=== PATIENT | female | born 1960 | race African-American/Black ===

== ENCOUNTER 2018-11-19 11:42 | Day surgery (SDC) | payer OTHER | END 2018-11-19 16:15 | disposition home or self-care (01) | LOC: JASU-SURG 11:42 ==

== ENCOUNTER 2019-08-06 22:53 | Emergency (ER) | payer OTHER ==
[2019-08-06 23:06] VITALS: TEMP 97.8; BMI 28.8
--- NOTE | 2019-08-07 01:41 | PDOC ---
History of Present Illness - General Chief Complaint: Pain, Acute Stated Complaint: NECK PAIN Time Seen by Provider: 08/07/19 01:39 History Source: Patient Exam Limitations: No Limitations - History of Present Illness Initial Comments: 08/07/19 01:41 PCP: Dr. Bonilla Neuro: Dr. Sinha HPI: 58yo F pmh HTN, resting tremor, two silent strokes found on MRI recently presenting with left sided posterior head / neck pain. Patient reports having a stiff neck while at a buddhist class around 6PM. Progressed to pain that shoots up the back side of her head. She took a second ASA 81mg due to the pain and concern she was having another stroke - did not fix the pain. She denies and numbness, tingling, weakness, gait instability, speech changes, memory problems. No history of blood clots or cardiac arrhythmia. Pain is positional, worse with turning her head, absent during my evaluation while she remained in a sitting position. On propranolol for a resting tremor she has had for the past 2 years. All: Contrast media Meds: HCTZ, Valsartan, Propranolol PMH: As above SHx: Denies toxic habits Past History - Past Medical History Allergies/Adverse Reactions: Allergies Allergy/AdvReac Type Severity Reaction Status Date / Time Iodinated Contrast Media Allergy Verified 11/19/18 13:19 SEASONAL Allergy Uncoded 11/18/18 11:19 Home Medications: Ambulatory Orders Hydrocodone/Acetaminophen [Hydrocodone-Acetamin 5-325 mg] 1 - 2 tab PO TID PRN # 15 tablet MDD 6 11/19/18 Loratadine [Allergy Relief] 10 mg PO DAILY 11/19/18 Valsartan/Hydrochlorothiazide [Valsartan-Hctz 320-25 mg Tab] 1 each PO DAILY 10/04 Anemia: No Asthma: No Cancer: No Cardiac Disorders: No CVA: No COPD: No CHF: No Dementia: No Diabetes: No GI Disorders: No Disorders: No HTN: Yes Hypercholesterolemia: No Liver Disease: No Seizures: No Thyroid Disease: No Other medical history: TIA - Psycho Social/Smoking Cessation Hx Smoking History: Never smoked Hx Alcohol Use: No Drug/Substance Use Hx: No Substance Use Type: None Review of Systems - Review of Systems Able to Perform ROS?: Yes Is the patient limited Georgian proficient: Yes Constitutional: No: Chills, Fever HEENTM: No: Nose Congestion, Throat Pain Respiratory: No: Cough, Shortness of Breath Cardiac (ROS): No: Chest Pain, Edema, Irregular Heart Rate ABD/GI: No: Constipated, Diarrhea, Nausea, Vomiting : No: Burning, Dysuria, Frequency Musculoskeletal: Yes: See HPI, Neck Pain. No: Back Pain, Muscle Pain, Muscle Weakness Integumentary: No: Bruising, Pruritus, Rash Neurological: Yes: See HPI. No: Headache, Numbness, Tingling, Weakness Psychiatric: No: Stressors, Change in Appetite Endocrine: No: Increased Thirst, Increased Urine Hematologic/Lymphatic: No: Anemia, Blood Clots, Easy Bleeding All Other Systems: Reviewed and Negative *Physical Exam - Vital Signs Last Vital Signs Temp Pulse Resp BP Pulse Ox 97.8 F 80 20 134/81 100 08/06/19 23:03 08/06/19 23:03 08/06/19 23:03 08/06/19 23:03 08/06/19 23:03 - Physical Exam 08/07/19 02:13 Vitals reviewed, AFVSS GEN: Well appearing, appears stated age, NAD, comfortable. AAOx3. HEENT: NCAT, EOMI, PERRL. Sclera anicteric, non-injected. No facial asymmetry. Moist mucous membranes. Normal voice. Trachea midline. Neck tender / tight L paraspinal, reproduces pain. CV: RRR, S1/S2, no murmurs / rubs / gallops appreciated. LUNG: CTAB, normal work of breathing. No wheezes, rales, rhonchi. No cough. Speaking full sentences. GI: Soft, NTND, +BS, no guarding, no rebound. No masses. Neg CVAT b/l. EXTREMITIES: 2+ distal pulses. No LE edema. No obvious deformities of all extremities. SKIN: Warm, dry, no rashes appreciated, non-jaundiced. PSYCH: Normal mood and affect. Cooperative and appropriate. NEURO: CN 2-12 intact. Moving all extremities well with normal gait. Normal strength and sensation throughout. Normal speech, articulation, memory remote and current. Normal fund of knowledge, A&Ox3. Medical Decision Making - Medical Decision Making 08/07/19 02:28 58yo F pmh HTN, resting tremor, two silent strokes found on MRI recently presenting with left sided posterior head / neck pain. Normal vitals and neurologic exam. Most consistent with cervical nerve compression, reassuring given no trauma, non-tender. - NCHCT, C-Spine CT - Refuses pain medication at this time 08/07/19 04:31 - Patient pending imaging results 08/07/19 05:00 - Imaging negative, patient ready for discharge Discharge - Discharge Information Problems reviewed: Yes Clinical Impression/Diagnosis: Neck pain Condition: Improved Disposition: HOME - Admission No - Follow up/Referral Referrals: Isidro Bonilla MD [Primary Care Provider] - - Patient Discharge Instructions Additional Instructions: Follow up with your primary care physician Dr. Bonilla. Come back to the emergency department for any new, worsening or concerning symptoms. - Post Discharge Activity
--- NOTE | 2019-08-07 01:58 | PDOC ---
Attending Attestation - Resident Resident Name: Kj Fernandez - ED Attending Attestation I have performed the following: I have examined & evaluated the patient, The case was reviewed & discussed with the resident, I agree w/resident's findings & plan - HPI HPI: 08/07/19 04:48 see resident hpi - Physicial Exam PE: 08/07/19 04:48 see resident exam - Medical Decision Making 08/07/19 04:49 58-year-old female with left-sided reproducible neck pain with some radiation into the occiput now improved Patient states she did walk up a long hill carrying a backpack and feels this may be related Patient repeatedly refused pain medication in the emergency department CT scan of the head and cervical spine show no significant acute abnormality She has neuro intact, headache free with reproducible left-sided neck pain on palpation of ropey paravertebral musculature Will DC to follow-up with primary care
--- NOTE | 2019-08-07 04:59 | PDOC ---
*Physical Exam - Vital Signs Last Vital Signs Temp Pulse Resp BP Pulse Ox 97.8 F 80 20 134/81 100 08/06/19 23:03 08/06/19 23:03 08/06/19 23:03 08/06/19 23:03 08/06/19 23:03 Discharge - Discharge Information Problems reviewed: Yes Clinical Impression/Diagnosis: Neck pain Condition: Improved Disposition: HOME - Admission No - Follow up/Referral Referrals: Isidro Bonilla MD [Primary Care Provider] - - Patient Discharge Instructions Patient Printed Discharge Instructions: DI for Occipital Neuralgia Additional Instructions: Follow up with your primary care physician Dr. Bonilla. Come back to the emergency department for any new, worsening or concerning symptoms. - Post Discharge Activity
[2019-08-07 05:23] VITALS: BP 119/80; PULSE 84
== END 2019-08-07 05:00 | disposition home or self-care (01) ==
LOC: JER 22:53
DX: M54.2 Cervicalgia (principal); M54.81 Occipital neuralgia; I10 Essential (primary) hypertension; Z86.73 Personal history of transient ischemic attack (TIA), and cerebral infarction without residual deficits
CPT/HCPCS: 70450-TC; 72125-TC; 99284-25

== ENCOUNTER 2020-02-24 18:15 | Emergency (ER) | payer OTHER ==
[2020-02-24 18:48] VITALS: BP 172/94; PULSE 76; TEMP 98.3; BMI 28.3
--- NOTE | 2020-02-24 18:49 | PDOC ---
Rapid Medical Evaluation Chief Complaint: Constipation Time Seen by Provider: 02/24/20 18:45 Medical Evaluation: Allergies Allergy/AdvReac Type Severity Reaction Status Date / Time Iodinated Contrast Media Allergy Verified 02/24/20 18:45 SEASONAL Allergy Uncoded 02/24/20 18:45 02/24/20 18:45 I have performed a brief in-person evaluation of this patient. The patient presents with a chief complaint of: constipation x 2 months which has been getting work in the last week. report hasn't have BM in a week until today when she had little BM. report feeling of bloating and decreased appetite. Denies fever, chills. report no abd pain now. report taking OTC meds for constipation w/o improvement Pertinent physical exam findings: A&Ox 3 in NAD I have ordered the following: CBC, CMP, ABD x-ray The patient will proceed to the ED for further evaluation. Discharge Disposition - Diagnosis Constipation Qualifiers: Constipation type: unspecified constipation type Qualified Code(s): K59.00 - Constipation, unspecified - Discharge Dispostion Condition at time of disposition: Stable - Referrals Referrals: Isidro Bonilla MD [Primary Care Provider] - - Patient Instructions - Post Discharge Activity
--- NOTE | 2020-02-24 21:15 | PDOC ---
History of Present Illness - General Chief Complaint: Constipation Stated Complaint: CONSTIPATION/LOSS OF APPETITE Time Seen by Provider: 02/24/20 18:45 History Source: Patient - History of Present Illness Initial Comments: 02/24/20 23:55 59-year-old female complaining of bloating, constipation for the last 3 weeks. Patient reports that she has been having thin pencillike stool for the last 1 week. Patient was seen by PCP and was advised that she needs a colonoscopy. Patient reports that she was unable to get a prompt GI appointment. Denies fever/chills, nausea, vomiting. Patient reports that she is a prediabetic, hypertension/hypercholesterolemia 02/24/20 23:56 Past History - Medical History Allergies/Adverse Reactions: Allergies Allergy/AdvReac Type Severity Reaction Status Date / Time Iodinated Contrast Media Allergy Verified 02/24/20 18:45 SEASONAL Allergy Uncoded 02/24/20 18:45 Home Medications: Ambulatory Orders Hydrocodone/Acetaminophen [Hydrocodone-Acetamin 5-325 mg] 1 - 2 tab PO TID PRN #15 tablet MDD 6 11/19/18 Loratadine [Allergy Relief] 10 mg PO DAILY 11/19/18 Valsartan/Hydrochlorothiazide [Valsartan-Hctz 320-25 mg Tab] 1 each PO DAILY 11/19/18 Magnesium Citrate [Citroma -] 195 ml PO ONCE #1 bottle 02/25/20 Polyethylene Glycol 3350 [Miralax (For Daily Use) -] 17 gm PO BID #1 bottle 02/25/20 Anemia: No Asthma: No Cancer: No Cardiac Disorders: No CVA: No COPD: No CHF: No Dementia: No Diabetes: No GI Disorders: No Disorders: No HTN: Yes Hypercholesterolemia: Yes Liver Disease: No Seizures: No Thyroid Disease: No Other medical history: TREMORS - Immunization History Immunization Up to Date: Yes - Psycho-Social/Smoking History Smoking History: Never smoked - Substance Abuse Hx (Audit-C & DAST Scrn) How often the patient has a drink containing alcohol: Never Score: In Men: 4 or > Positive; In Women: 3 or > Positive: 0 Screen Result (Pos requires Nsg. Audit-10AR): Negative In the last yr the pt used illegal drug/Rx for NonMed reason: No Score: Yes response is considered Positive: 0 Screen Result (Positive result requires Nsg. DAST-10): Negative Review of Systems - Review of Systems Able to Perform ROS?: Yes Is the patient limited Macedonian proficient: No Constitutional: No: Symptoms Reported, See HPI, Chills, Diaphoresis, Fever, Loss of Appetite, Malaise, Night Sweats, Weakness, Weight Stable, Unintentional Wgt. Loss, Unexplained wgt Loss, Other ABD/GI: Yes: Constipated, Abdominal cramping, Other (bloated) *Physical Exam - Vital Signs Last Vital Signs Temp Pulse Resp BP Pulse Ox 98.3 F 76 20 172/94 H 100 02/24/20 18:45 02/24/20 18:45 02/24/20 18:45 02/24/20 18:45 02/24/20 18:45 - Physical Exam General Appearance: Yes: Appropriately Dressed Respiratory/Chest: positive: Lungs Clear, Normal Breath Sounds Cardiovascular: positive: Regular Rhythm, Regular Rate Gastrointestinal/Abdominal: positive: Normal Bowel Sounds, Soft, Distended Extremity: positive: Normal Capillary Refill, Normal Inspection, Normal Range of Motion Integumentary: positive: Normal Color, Dry, Warm Neurologic: positive: Fully Oriented, Alert, Normal Mood/Affect ED Treatment Course - LABORATORY CBC & Chemistry Diagram: 02/24/20 21:48 02/24/20 21:48 ED Progress Note - Progress Note Progress Note: 02/25/20 05:55 A: abdominal pain COnstipation P: labs CTAP meds Medical Decision Making - Medical Decision Making 02/25/20 01:08 CTAP: Lung bases are clear of any right lower lobe calcified granuloma. The visualized cardiac chambers are normal size and configuration. Normal liver, gallbladder, pancreas, spleen, adrenal glands and kidneys. The stomach and abdominal small and large bowel are normal. Moderate amount of diffuse solid stool is noted. There is no aortic aneurysm. There is no significant retroperitoneal lymphadenopathy. The pelvic small and large bowel are normal. The appendix is normal. The uterus and adnexal structures are normal. Urinary bladder is unremarkable. There is no pelvic free fluid. No discrete pelvic lymphadenopathy is identified. Discharge - Discharge Information Problems reviewed: Yes Clinical Impression/Diagnosis: Abdominal bloating Constipation Qualifiers: Constipation type: unspecified constipation type Qualified Code(s): K59.00 - Constipation, unspecified Condition: Stable Disposition: HOME - Additional Discharge Information Prescriptions: Magnesium Citrate [Citroma -] 195 ml PO ONCE #1 bottle Polyethylene Glycol 3350 [Miralax (For Daily Use) -] 17 gm PO BID #1 bottle - Follow up/Referral Referrals: Isidro Bonilla MD [Primary Care Provider] - - Patient Discharge Instructions Patient Printed Discharge Instructions: Constipation Additional Instructions: Drink plenty of fluids. Take MiraLAX as prescribed Take magnesium citrate drink the whole bottle. Follow-up with a director corporate as soon as possible. Return to the emergency room for any worsening symptoms - Post Discharge Activity Work/Back to School Note: Back to Work
[2020-02-24 22:14] LABS: BASO % 0.3 % (0-2.0); EOS % 1.4 % (0-4.5); HEMATOCRIT 33.8 % (32.4-45.2); HEMOGLOBIN 11.6 GM/dL (10.7-15.3); LYMPH % 37.3 % (8-40); MCH 29.1 pg (25.7-33.7); MCHC 34.3 g/dl (32.0-36.0); MEAN CELL VOLUME 85.1 fl (80-96); MONO % 7.7 % (3.8-10.2); NEUT % 53.3 % (42.8-82.8); PLATELET COUNT 370 K/MM3 (134-434); RBC 3.97 M/mm3 (3.60-5.2); RDW 13.5 % (11.6-15.6); WHITE BLOOD COUNT 9.2 K/mm3 (4.0-10.0)
[2020-02-24 22:46] LABS: ALBUMIN 3.6 g/dl (3.4-5.0); BILIRUBIN,TOTAL 0.4 mg/dL (0.2-1); BLOOD UREA NITROGEN 13.2 mg/dL (7-18); CALCIUM 9.5 mg/dL (8.5-10.1); POTASSIUM 4.1 mmol/L (3.5-5.1)
[2020-02-25 00:04] LABS: EPI CELLS 13 /uL (0-25.1); HYALINE CASTS 1 /uL (0-3.1); PH,URINE 6.5 (5.0-8.0); URINE APPEARANCE CLEAR; URINE BACTERIA 64 /uL (0-1359); URINE BILIRUBIN NEGATIVE (NEGATIVE); URINE COLOR YELLOW; URINE GLUCOSE (UA) NEGATIVE (NEGATIVE); URINE KETONE NEGATIVE (NEGATIVE); URINE LEUK ESTERASE TRACE (NEGATIVE); URINE NITRITE NEGATIVE (NEGATIVE); URINE PROTEIN 2+ (NEGATIVE); URINE UROBILINOGEN 0.2 mg/dL (0.2-1.0); URINE WBC 35 /uL (0-25.8)
== END 2020-02-25 01:23 | disposition home or self-care (01) ==
LOC: JER 18:15
DX: K59.00 Constipation, unspecified (principal)
CPT/HCPCS: 36415; 74176-TC; 80053; 81003; 84443; 85025; 99285-25

== ENCOUNTER 2022-08-04 16:59 | Emergency (ER) | payer OTHER ==
[2022-08-04 17:06] VITALS: BMI 28.0
[2022-08-04] MEDS ORDERED: SIMETHICONE 80 MG TAB.CHEW (FP) PO ONE (18:20)
[2022-08-04] MEDS ORDERED: amLODIPine BESYLATE 10 MG TABLET (FP) PO ONE (18:24)
[2022-08-04 18:29] VITALS: RESP 16; TEMP 98.2
[2022-08-04] MEDS ORDERED: SIMETHICONE 80 MG TAB.CHEW (FP) ONE (18:35)
[2022-08-04] MEDS ORDERED: amLODIPine BESYLATE 10 MG TABLET (FP) ONE (18:35)
[2022-08-04 18:59] VITALS: BP 164/101; PULSE 88
[2022-08-04 19:49] LABS: BASO % 1.1 % (0-2.0); EOS % 0.9 % (0-4.5); HEMATOCRIT 34.6 % (32.4-45.2); HEMOGLOBIN 11.9 GM/dL (10.7-15.3); LYMPH % 43.6 % (8-40); MCH 29.2 pg (25.7-33.7); MCHC 34.3 g/dl (32.0-36.0); MEAN CELL VOLUME 84.9 fl (80-96); MEAN PLT VOLUME 7.2 fl (7.5-11.1); MONO % 10.5 % (3.8-10.2); NEUT % 43.9 % (42.8-82.8); PLATELET COUNT 372 10^3/uL (134-434); RBC 4.08 M/mm3 (3.60-5.2); RDW 14.1 % (11.6-15.6); WHITE BLOOD COUNT 7.6 K/mm3 (4.0-10.0)
[2022-08-04 20:11] LABS: CALCIUM 9.7 mg/dL (8.5-10.1)
[2022-08-04 20:13] LABS: ALBUMIN 4.1 g/dl (3.4-5.0); BLOOD UREA NITROGEN 19.7 mg/dL (7-18)
[2022-08-04 20:15] LABS: CREATININE 1.2 mg/dL (0.55-1.3)
[2022-08-04 20:16] LABS: TOT PROT 8.2 g/dl (6.4-8.2)
[2022-08-04 20:17] LABS: BILIRUBIN,TOTAL 0.4 mg/dL (0.2-1)
[2022-08-04] MEDS ORDERED: MAGNESIUM CITRATE 300 ML BOTTLE PO ONE (20:26)
[2022-08-04] MEDS ORDERED: MAGNESIUM HYDROX 2400MG/30ML ORAL SUSPENSION 30 ML CUP PO ONE (20:35)
[2022-08-04] MEDS ORDERED: MAGNESIUM HYDROX 2400MG/30ML ORAL SUSPENSION 30 ML CUP ONE (20:35)
== END 2022-08-04 21:29 | disposition home or self-care (01) ==
LOC: JER 16:59
DX: K59.00 Constipation, unspecified (principal); R14.0 Abdominal distension (gaseous)
CPT/HCPCS: 0241U-QW; 36415; 80053; 83690; 85025; 99283-25

== ENCOUNTER 2022-08-28 20:59 | Emergency (ER) | payer OTHER ==
[2022-08-28 21:10] VITALS: BP 168/98; PULSE 90; RESP 20; TEMP 97.8; BMI 26.9
[2022-08-28] MEDS ORDERED: ACETAMINOPHEN 500 MG TABLET (FP) PO ONE (22:25)
[2022-08-28] MEDS ORDERED: ACETAMINOPHEN 325 MG TABLET (FP) ONE (22:41)
[2022-08-29] MEDS ORDERED: diazePAM 5 MG TABLET PO ONE (00:41)
[2022-08-29] MEDS ORDERED: diazePAM 5 MG TABLET ONE (01:01)
== END 2022-08-29 01:53 | disposition home or self-care (01) ==
LOC: JER 20:59
DX: M62.838 Other muscle spasm (principal); G20 Parkinson's disease; R51.9 Headache, unspecified
CPT/HCPCS: 70450-TC; 99284-25

== ENCOUNTER 2022-08-29 05:03 | Day surgery (SDC) | payer OTHER ==
[2022-08-28 10:55] VITALS: BMI 27.1
[2022-08-29 09:35] VITALS: TEMP 97.8
[2022-08-29 11:16] VITALS: PULSE 74; RESP 14
[2022-08-29 14:43] VITALS: BP 140/88
== END 2022-08-29 11:40 | disposition home or self-care (01) ==
LOC: JASU-ENDO 05:03
PROVIDERS: ATTEND Student in an Organized Health Care Education/Training Program
PROC: 0DB78ZX Excision of Stomach, Pylorus, Via Natural or Artificial Opening Endoscopic, Diagnostic (ICD-10-PCS; 2022-08-29)
PROC: 0DB68ZX Excision of Stomach, Via Natural or Artificial Opening Endoscopic, Diagnostic (ICD-10-PCS; 2022-08-29)
PROC: 0DB48ZX Excision of Esophagogastric Junction, Via Natural or Artificial Opening Endoscopic, Diagnostic (ICD-10-PCS; 2022-08-29)
PROC: 0DB98ZX Excision of Duodenum, Via Natural or Artificial Opening Endoscopic, Diagnostic (ICD-10-PCS; principal; 2022-08-29 16:30)
DX: K29.50 Unspecified chronic gastritis without bleeding (principal)
CPT/HCPCS: 88305-TC; 88342-TC

== ENCOUNTER 2023-04-23 16:34 | Emergency (ER) | payer OTHER ==
[2023-04-23 17:28] VITALS: TEMP 98.1; BMI 28.3
[2023-04-23 20:17] VITALS: PULSE 79; RESP 18
[2023-04-23 21:55] LABS: BASO % 0.8 % (0-2.0); EOS % 1.6 % (0-4.5); HEMATOCRIT 35.6 % (32.4-45.2); HEMOGLOBIN 11.6 GM/dL (10.7-15.3); LYMPH % 46.5 % (8-40); MCH 28.1 pg (25.7-33.7); MCHC 32.5 g/dl (32.0-36.0); MEAN CELL VOLUME 86.5 fl (80-96); MEAN PLT VOLUME 6.5 fl (7.5-11.1); MONO % 9.6 % (3.8-10.2); NEUT % 41.5 % (42.8-82.8); PLATELET COUNT 305 10^3/uL (134-434); RBC 4.11 M/mm3 (3.60-5.2); RDW 14.1 % (11.6-15.6); WHITE BLOOD COUNT 7.6 K/mm3 (4.0-10.0)
[2023-04-23 22:19] LABS: POTASSIUM 3.7 mmol/L (3.5-5.1)
[2023-04-23 22:21] LABS: ALBUMIN 3.6 g/dl (3.4-5.0); CALCIUM 9.2 mg/dL (8.5-10.1)
[2023-04-23 22:22] LABS: BLOOD UREA NITROGEN 13.8 mg/dL (7-18)
[2023-04-23 22:23] VITALS: BP 145/73
[2023-04-23 22:26] LABS: BILIRUBIN,TOTAL 0.6 mg/dL (0.2-1); TOT PROT 7.2 g/dl (6.4-8.2)
[2023-04-23] MEDS ORDERED: ACETAMINOPHEN 325 MG TABLET (FP) PO ONE (22:28)
== END 2023-04-23 23:38 | disposition home or self-care (01) ==
LOC: JER 16:34
DX: I10 Essential (primary) hypertension (principal); R51.9 Headache, unspecified
CPT/HCPCS: 36415; 71045-TC-FY; 80053; 84484; 85025; 93005; 93010; 99285-25

== ENCOUNTER 2024-06-06 20:04 | Inpatient (IN) | payer OTHER ==
[2024-06-06 20:10] VITALS: BMI 28.3
[2024-06-06 22:36] LABS: BASO % 0.4 % (0-2.0); EOS % 2.2 % (0-4.5); HEMATOCRIT 35.9 % (32.4-45.2); HEMOGLOBIN 12.5 GM/dL (10.7-15.3); LYMPH % 42.3 % (8-40); MCH 30.4 pg (25.7-33.7); MCHC 34.9 g/dl (32.0-36.0); MEAN CELL VOLUME 87.1 fl (80-96); MEAN PLT VOLUME 6.7 fl (7.5-11.1); MONO % 9.9 % (3.8-10.2); NEUT % 45.2 % (42.8-82.8); PLATELET COUNT 294 10^3/uL (134-434); RBC 4.12 M/mm3 (3.60-5.2); RDW 13.6 % (11.6-15.6); WHITE BLOOD COUNT 6.3 K/mm3 (4.0-10.0)
[2024-06-06 22:55] LABS: POTASSIUM 3.6 mmol/L (3.5-5.1)
[2024-06-06 22:57] LABS: ALBUMIN 3.8 g/dl (3.4-5.0); BLOOD UREA NITROGEN 14.4 mg/dL (7-18); CALCIUM 9.2 mg/dL (8.5-10.1)
[2024-06-06 23:02] LABS: BILIRUBIN,TOTAL 0.5 mg/dL (0.2-1); TOT PROT 7.4 g/dl (6.4-8.2)
[2024-06-07] MEDS ORDERED: METOCLOPRAMIDE HCL INJECTION 10 MG/2 ML VIAL ONE (01:13)
[2024-06-07] MEDS ORDERED: ACETAMINOPHEN INJECTION 100 ML ONE (01:13)
[2024-06-07] MEDS: METOCLOPRAMIDE HCL INJECTION 10 MG/2 ML VIAL IVPB ONE (01:18)
[2024-06-07] MEDS: ACETAMINOPHEN 1000 MG/100 ML BAG IVPB ONE (01:18)
[2024-06-07] MEDS: SODIUM CHLORIDE 0.9% 500 ML INFUS.BAG IV ONE (01:18)
[2024-06-07] MEDS ORDERED: VALSARTAN 80 MG TABLET ONE ×2 (02:26→06:11)
[2024-06-07] MEDS: VALSARTAN 80 MG TABLET PO ONE (02:44)
[2024-06-07] MEDS: VALSARTAN 160 MG TABLET PO SCH (06:26)
[2024-06-07 06:41] LABS: BASO % 0.4 % (0-2.0); EOS % 1.6 % (0-4.5); HEMOGLOBIN 11.8 GM/dL (10.7-15.3); LYMPH % 41.6 % (8-40); MCH 30.1 pg (25.7-33.7); MCHC 34.8 g/dl (32.0-36.0); MEAN CELL VOLUME 86.6 fl (80-96); MEAN PLT VOLUME 7.2 fl (7.5-11.1); NEUT % 45.4 % (42.8-82.8); PLATELET COUNT 304 10^3/uL (134-434); RBC 3.93 M/mm3 (3.60-5.2); RDW 13.6 % (11.6-15.6); WHITE BLOOD COUNT 5.8 K/mm3 (4.0-10.0)
[2024-06-07 06:50] LABS: POTASSIUM 3.6 mmol/L (3.5-5.1)
[2024-06-07 06:52] LABS: CALCIUM 9.2 mg/dL (8.5-10.1)
[2024-06-07 06:54] LABS: ALBUMIN 3.6 g/dl (3.4-5.0); BLOOD UREA NITROGEN 12.2 mg/dL (7-18); MAGNESIUM 1.6 mg/dL (1.8-2.4)
[2024-06-07 06:57] LABS: PHOSPHOROUS 3.3 mg/dL (2.5-4.9)
[2024-06-07 06:58] LABS: BILIRUBIN,TOTAL 0.5 mg/dL (0.2-1)
[2024-06-07 06:59] LABS: TOT PROT 7.2 g/dl (6.4-8.2)
[2024-06-07] MEDS ORDERED: CARBIDOPA/LEVODOPA 25/100 TABLET (FP) ONE ×2 (07:47→19:36)
[2024-06-07] MEDS: CARBIDOPA/LEVODOPA 25/100 TABLET (FP) PO SCH (07:52)
[2024-06-07] MEDS: INSULIN ASPART SLIDING SCALE (NOVOLOG) 1 VIAL SQ SCH (07:53)
[2024-06-07] MEDS: HYDROCHLOROTHIAZIDE 12.5 MG CAPSULE (FP) PO SCH (10:25)
[2024-06-07] MEDS: ENOXAPARIN NA (PORCINE) 40 MG/0.4 ML DISP.SYRIN SQ SCH (10:25)
[2024-06-07] MEDS: ASPIRIN 81 MG CHEWABLE TABLETS PO SCH (10:25)
[2024-06-07] MEDS: amLODIPine BESYLATE 5 MG TABLET (FP) PO SCH (10:25)
[2024-06-07] MEDS ORDERED: INSULIN ASPART SLIDING SCALE (NOVOLOG) 1 VIAL SQ ONE (12:18)
[2024-06-07] MEDS ORDERED: amLODIPine BESYLATE 5 MG TABLET (FP) ONE (17:20)
[2024-06-07] MEDS: amLODIPine BESYLATE 5 MG TABLET (FP) PO ONE (17:22)
[2024-06-07] MEDS ORDERED: hydrALAZINE HCL 20 MG/ML VIAL ONE (18:34)
[2024-06-07] MEDS: hydrALAZINE HCL 20 MG/ML VIAL IVPUSH PRN (19:00)
[2024-06-07] MEDS ORDERED: ATORVASTATIN CA 40 MG TABLET (FP) ONE (22:04)
[2024-06-07] MEDS: ATORVASTATIN CA 40 MG TABLET (FP) PO SCH (22:06)
[2024-06-08] MEDS: ACETAMINOPHEN 325 MG TABLET (FP) PO PRN (01:06)
[2024-06-08 06:40] LABS: BASO % 0.2 % (0-2.0); EOS % 0.3 % (0-4.5); HEMATOCRIT 34.9 % (32.4-45.2); HEMOGLOBIN 12.4 GM/dL (10.7-15.3); LYMPH % 30.4 % (8-40); MCH 30.5 pg (25.7-33.7); MCHC 35.6 g/dl (32.0-36.0); MEAN CELL VOLUME 85.8 fl (80-96); MEAN PLT VOLUME 6.8 fl (7.5-11.1); NEUT % 59.1 % (42.8-82.8); PLATELET COUNT 312 10^3/uL (134-434); RBC 4.06 M/mm3 (3.60-5.2); WHITE BLOOD COUNT 6.4 K/mm3 (4.0-10.0)
[2024-06-08 07:07] LABS: POTASSIUM 3.5 mmol/L (3.5-5.1)
[2024-06-08 07:15] LABS: ALBUMIN 3.6 g/dl (3.4-5.0); BLOOD UREA NITROGEN 10.2 mg/dL (7-18); CALCIUM 9.3 mg/dL (8.5-10.1); MAGNESIUM 1.5 mg/dL (1.8-2.4)
[2024-06-08 07:18] LABS: CREATININE 0.9 mg/dL (0.55-1.3)
[2024-06-08 07:20] LABS: BILIRUBIN,TOTAL 0.6 mg/dL (0.2-1); TOT PROT 7.3 g/dl (6.4-8.2)
[2024-06-08] MEDS ORDERED: MAGNESIUM OXIDE 400 MG TABLET (FP) ONE (07:54)
[2024-06-08] MEDS: MAGNESIUM OXIDE 400 MG TABLET (FP) PO ONE (07:59)
[2024-06-08] MEDS ORDERED: MAGNESIUM OXIDE 400 MG TABLET (FP) PO SCH (10:00)
[2024-06-08] MEDS ORDERED: ENOXAPARIN NA (PORCINE) 40 MG/0.4 ML DISP.SYRIN SQ ONE (10:19)
[2024-06-08] MEDS: amLODIPine BESYLATE 10 MG TABLET (FP) PO SCH (11:30)
[2024-06-08 12:51] LABS: POTASSIUM 3.5 mmol/L (3.5-5.1)
[2024-06-08 12:54] LABS: BLOOD UREA NITROGEN 10.9 mg/dL (7-18); CALCIUM 9.7 mg/dL (8.5-10.1)
[2024-06-08] MEDS ORDERED: INSULIN ASPART SLIDING SCALE (NOVOLOG) 1 VIAL SQ ONE (17:37)
[2024-06-08] MEDS: MAGNESIUM OXIDE 400 MG TABLET (FP) PO SCH (22:59)
[2024-06-09 08:05] LABS: HEMATOCRIT 36.2 % (32.4-45.2); HEMOGLOBIN 12.8 GM/dL (10.7-15.3); MCH 30.3 pg (25.7-33.7); MCHC 35.3 g/dl (32.0-36.0); MEAN PLT VOLUME 6.6 fl (7.5-11.1); PLATELET COUNT 331 10^3/uL (134-434); RBC 4.22 M/mm3 (3.60-5.2); RDW 13.6 % (11.6-15.6); WHITE BLOOD COUNT 5.8 K/mm3 (4.0-10.0)
[2024-06-09 09:30] LABS: POTASSIUM 3.6 mmol/L (3.5-5.1)
[2024-06-09 09:43] LABS: ALBUMIN 3.9 g/dl (3.4-5.0)
[2024-06-09 09:46] LABS: BLOOD UREA NITROGEN 9.2 mg/dL (7-18); CREATININE 0.9 mg/dL (0.55-1.3)
[2024-06-09 09:48] LABS: BILIRUBIN,TOTAL 0.8 mg/dL (0.2-1); TOT PROT 7.8 g/dl (6.4-8.2)
[2024-06-09 09:58] LABS: CALCIUM 10.2 mg/dL (8.5-10.1)
[2024-06-09 10:03] LABS: MAGNESIUM 2.3 mg/dL (1.8-2.4)
[2024-06-09 22:59] VITALS: RESP 18
[2024-06-10 06:35] LABS: BASO % 0.3 % (0-2.0); HEMATOCRIT 36.7 % (32.4-45.2); HEMOGLOBIN 12.2 GM/dL (10.7-15.3); MCH 29.6 pg (25.7-33.7); MCHC 33.3 g/dl (32.0-36.0); MEAN CELL VOLUME 88.9 fl (80-96); MEAN PLT VOLUME 6.6 fl (7.5-11.1); NEUT % 44.7 % (42.8-82.8); PLATELET COUNT 321 10^3/uL (134-434); RBC 4.13 M/mm3 (3.60-5.2); RDW 14.1 % (11.6-15.6); WHITE BLOOD COUNT 5.9 K/mm3 (4.0-10.0)
[2024-06-10 06:55] LABS: POTASSIUM 3.8 mmol/L (3.5-5.1)
[2024-06-10 06:57] LABS: CALCIUM 9.4 mg/dL (8.5-10.1)
[2024-06-10 06:58] LABS: ALBUMIN 3.6 g/dl (3.4-5.0); BLOOD UREA NITROGEN 18.6 mg/dL (7-18); MAGNESIUM 2.4 mg/dL (1.8-2.4)
[2024-06-10 07:01] LABS: CREATININE 1.1 mg/dL (0.55-1.3)
[2024-06-10 07:02] LABS: BILIRUBIN,TOTAL 0.6 mg/dL (0.2-1); TOT PROT 7.3 g/dl (6.4-8.2)
[2024-06-10 09:38] VITALS: TEMP 98.1
[2024-06-10] MEDS: SODIUM CHLORIDE 1 GM TABLET PO SCH (14:41)
[2024-06-10 14:51] VITALS: BP 116/85; PULSE 74
== END 2024-06-10 15:10 | disposition home or self-care (01) | DRG 305 ==
LOC: JER 20:04 → JERBED 06-07 01:16 → J4S 06-08 19:02
PROVIDERS: ADMIT Internal Medicine; ATTEND Internal Medicine
DX: I16.0 Hypertensive urgency (principal); E87.1 Hypo-osmolality and hyponatremia; I10 Essential (primary) hypertension; E11.9 Type 2 diabetes mellitus without complications; E78.5 Hyperlipidemia, unspecified; G20.A1 Parkinson's disease without dyskinesia, without mention of fluctuations
CPT/HCPCS: 0241U-QW; 36415; 70450-TC; 80048; 80053; 82533; 82962; 83036; 83735; 83930; 83935; 84100; 84300; 84443; 84484; 85025; 85027; 86850; 86900; 86901; 93005; 93010; 93306-TC; 97116-GP; 97161-GP; 99285-25; J0131